=== PATIENT | female | born 1990 | race Caucasian/White ===

== ENCOUNTER 2024-10-02 10:15 | Inpatient (IN) ==
--- NOTE | 2024-10-02 10:22 | History & Physical Report ---
Date of Service October 02, 2024 Assessment & Plan (1) 39 weeks gestation of : (2) Encounter for induction of labor: Plan Edmond bulb inserted Pitocin Arom when indicated Monitor tracing, category 1 Admission and Anticipated Discharge Date Admission Date: October 02, 2024 History of Present Illness Chief Complaint: Induction of labor Primary Care Provider: Emanuel Chiu MD 34 yo at 39w6d confirmed by US, here for induction. She was a previously scheduled due to breech presentation, but is now vertex presentation and would like a vaginal delivery. Complications with this include asthma, tobacco use, 06/2023 ascus/hpv+, colpo RUSSEL 1 rpt rec 06/2024, short cervix at 24 wk, anemia, breech at 36 weeks but vertex now. Has been attending OB appointments regularly. Currently taking no medications. Contractions: none. Fluid or Blood loss: none Movement: active Labs - Blood type: O+ - Antibody screen: negative - H.4 (08/26/24) - Hct 30.2% (08/26/24) - Wbc: 16.99 (08/26/24) - Plt: 347 (08/26/24) - Rubella: immune - VDRL/RPR: non-reactive - Gonorrhea: negative - Chlamydia: negative - HIV: non-reactive - HbSAg: non-reactive - GBS: negative - Glucose 1 Hr 50 gm - 114 (07/17/24) Allergies Allergy/AdvReac Type Severity Reaction Status Date / Time Penicillins Allergy Intermediate Vomiting Verified 10/01/24 14:36 Sulfa (Sulfonamide Allergy Intermediate Vomiting Verified 10/01/24 14:36 Antibiotics) Home Medications Medication Instructions Recorded Confirmed Type albuterol sulfate 90 mcg/actuation 1 - 2 puff inhalation Q4H PRN SOB 05/05/24 10/02/24 History aerosol inhaler prenat.vits,jocelynn,[id number] 1 tab PO HS 06/04/24 10/02/24 History buprenorphine HCl 8 mg sublingual 8 mg sublingual BID 06/12/24 10/02/24 History tablet breast pump #1 ea 09/25/24 10/01/24 Rx breast pump #1 ea 09/25/24 10/01/24 Rx cyanocobalamin (vitamin B-12) 1,000 mcg PO QAM 09/25/24 10/02/24 History 1,000 mcg tablet (Vitamin B-12) fluticasone propionate 115 2 puff inhalation HS 09/25/24 10/02/24 History mcg-salmeterol 21 mcg/actuation HFA inhaler (Advair HFA) Patient History Medical History Asthma Depression History of anemia Hx iron transfusions TMJ click No device, states she has never been diagnosed with TMJ Surgical History History of cone biopsy of cervix Hx of tonsillectomy [place] teeth removed Family History Father Cirrhosis of liver Mother Hypertension Other No family history of adverse response to anesthesia Social History Smoking Status: Current every day smoker Tobacco Type: Cigarettes Cigarettes Per Day: 3-4; Second Hand Exposure: Yes; Do You Dip or Chew Tobacco: No; Tobacco Cessation Education Requested by Patient: No Hx Alcohol Use: No Hx Substance Use: No Preferred Language: Hungarian Communication Ability: Effective Irrigation District Manager Required: No Beliefs That Will Affect Care: None marital status: Single marital status details: Marvin (35) [phone] Current Living Situation: Family and Significant Other Current Living Situation Comment: Pt lives with ROSELINEBMarvin and 6yo felipesuleman Jessica current occupational status: unemployed Other Information That Helps Us Care for You: No Feels Safe at Home: Yes Safety Concerns: Feels Safe At This Time Assistive Devices: Denture - Upper OB History : 3 Full term: 1 Premature: 0 Total Number of Induced Abortions: 1 Total Number of Spontaneous Abortions: 0 Ectopics: 0 Multiple births: 0 Number of Living Children: 1 [employer] COUN[employer]OR History Last menstrual period: Yes Menstrual reliability: definite Flow: normal Menstrual regularity: regular Monthly: Yes Age at menarche: 15 On control pills at conception: No Menstrual history comments: 28-30 day cycles Other symptoms: 22+wks transfer Details: last pap 06/19/23 ASCUS/HPV+, recommend colpo ppx Review of Systems All systems reviewed & are unremarkable except as noted in HPI & below Physical Exam Constitutional: WD/WN, vitals as above Respiratory: normal respiratory effort Auscultation: + wheezes (mild wheezing in bilateral lower lung bases) Cardiovascular: Rate/Rhythm: regular rate and regular rhythm Heart Sounds: normal S1 and normal S2 no LE edema bilaterally, negative Lokesh sign bilaterally Gastrointestinal (Abdomen): normal bowel sounds, soft, nontender, no hepatosplenomegaly +gravid Skin: no rashes, warm and dry Genitourinary: Manual OB Exam: + cervical dilation 1 cm, + cervical effacement 70% and + station -[address] rFost Results & Data Vital Signs (Past 12 Hours) SpO2 96% on RA Laboratory Results OB Labs: Hgb 9.4 g/dl (12.0-16.0) L 08/26/24 Hct 30.2 % (37.0-47.0) L 08/26/24 MCV 69.7 fL (80.0-100.0) L 08/26/24 Plt Count 347 K/uL (130-400) 08/26/24 Treponema pallidum Ab Negative (Negative) 07/17/24 Glucose 1 Hr 50 gm 114 mg/dl (70-130) 07/17/24 OB Optional Labs: No Data to Display Labs Reviewed: Initial OB Labs Blood Type & RH O positive Antibody Screen Negative HCT/HGB38.3/12.3 Platelets 299 Hep C IgG 13yrs+ Oldnon reactive Pap Test ASCUS/HPV+ 06/19/23 Chlamydia negative Gonorrhea negative Rubella immune RPR non reactive HBsAg non reactive HIV non reactive MCV 73.5 Urine Cx 25,000 cfu/ml yeast declined genetic screen Monitoring External Monitor HR: 140 variability: moderate accelerations: present decelerations: absent Category 1 tracing Supervising Physician Co-Signing Physician Notes Resident Physician Supervision Note: I was present with Dr. Aguayo during the history and exam. I discussed the case with the resident and agree with the findings and plan as documented in the note. Any exceptions or clarifications are listed here: admitted for induction, spontaneously now cephalic, confirmed with u/s this am. will place edmond and start pitocin, arom when able. fhts categ 1. Documented By: Chloé Frost MD, FACOG Resident Activity Tracking Resident Involvement: Resident Care Provided Care Provided: OB Delivery
[2024-10-02] MEDS ORDERED: CALCIUM CARBONATE 500 MG CHEWABLE TAB PO PRN (10:34)
[2024-10-02] MEDS ORDERED: ACETAMINOPHEN 325 MG TAB PO PRN (10:34)
[2024-10-02] MEDS ORDERED: OXYTOCIN 30 UNITS/NSS 30 UNITS/500 ML BAG IV PRN (10:34)
[2024-10-02] MEDS ORDERED: LIDOCAINE 1% LOCAL 20 ML VIAL INFIL PRN (10:34)
[2024-10-02] MEDS: LACTATED RINGER'S 1,000 ML IV PRN (10:47)
[2024-10-02] MEDS: OXYTOCIN 30 UNITS/NSS 30 UNITS/500 ML BAG IV PRN (11:00)
--- NOTE | 2024-10-02 11:02 | Labor Progress Brief Note ---
Date of Service October 02, 2024 Subjective 39 week induction, unfavorable cx at term. planned edmond ripening balloon Assessment & Plan (1) 39 weeks gestation of : (2) Encounter for induction of labor: (3) Non-dilated cervix in term : Plan edmond balloon for cx ripening placed. pt costa well. Admission and Anticipated Discharge Date Admission Date: October 02, 2024 Physical Exam Genitourinary: Manual OB Exam: + cervical dilation (1+), + cervical effacement 70% and + station -2 (post, medium) OB Exam Monitor Tracing: + external FHT monitor used, + external uterine monitor used, + category I and + normal FHT variability PROCEDURE: sse cx visualized, grasped on ant lip with ring forcep, edmond through os and balloon inflated with 40cc sterile water. Spec removed, edmond taped to leg. pt cosat well. Coding Level of Care Code None Diagnoses 39 weeks gestation of Z3A.39 Encounter for induction of labor Z34.90 Non-dilated cervix in term O34.40 CPT Codes Misx Procedure Codes - 84922 Placement of cervical dilator: 33638 Placement of cervical dilator ([id number]) [facility] Miscellaneous Codes Misx Procedure Codes 95622 Placement of cervical dilator
[2024-10-02 11:14] LABS: Hematocrit (blood only) 36.7 % (37.0-47.0); Hemoglobin 11.8 g/dl (12.0-16.0); Mean Corpuscular Hemoglobin 24.8 pg (25.0-34.0); Mean Corpuscular Volume 77.1 fL (80.0-100.0); Platelet Count 247 K/uL (130-400); Red Blood Count 4.76 M/uL (4.20-5.40); White Blood Count 13.65 K/ul (4.8-10.8)
--- NOTE | 2024-10-02 13:06 | Labor Progress Brief Note ---
Date of Service October 02, 2024 Subjective does not report painful ctx. edmond bulb did not come out. Assessment & Plan (1) 39 weeks gestation of : (2) Encounter for induction of labor: Plan cont with pitocin. fhts categ 1. arom when able. pt may have epidural when desires. Admission and Anticipated Discharge Date Admission Date: October 02, 2024 Physical Exam Genitourinary: Manual OB Exam: + cervical dilation (sve edmond bulb through cx. ) OB Exam Monitor Tracing: + external FHT monitor used, + external uterine monitor used (q2-3, pit at 5), + category I and + normal FHT variability Results & Data Vital Signs (Past 12 Hours) Vital Signs Temp Pulse Resp BP Pulse Ox O2 Del Method 10/02/24 12:52 76 106/55 L 10/02/24 12:33 81 100 10/02/24 12:28 86 100 10/02/24 12:23 83 100 10/02/24 12:18 89 100 10/02/24 12:13 83 99 10/02/24 12:08 86 99 10/02/24 12:03 82 97 10/02/24 11:58 89 99 10/02/24 11:53 85 97 10/02/24 11:50 81 111/56 L 10/02/24 11:48 84 99 10/02/24 11:43 90 98 10/02/24 11:38 89 98 10/02/24 11:33 80 98 10/02/24 11:28 83 97 10/02/24 11:23 86 98 10/02/24 11:21 84 94 10/02/24 11:18 81 98 10/02/24 11:13 84 96 10/02/24 11:08 86 96 10/02/24 11:06 97.9 F 18 Room Air 10/02/24 11:03 83 113/56 L 10/02/24 11:02 84 10/02/24 11:02 111/52 L 10/02/24 11:02 97.9 F 84 18 111/52 L Coding Level of Care Code None Diagnoses 39 weeks gestation of Z3A.39 Encounter for induction of labor Z34.90
[2024-10-02] MEDS: fentANYL 2 MCG/ML BUPIVacaine 0.125%-NSS 100ML BAG ONE (15:27)
[2024-10-02] MEDS ORDERED: ONDANSETRON INJ 2 MG/ML 2 ML VIAL IV PRN (15:30)
[2024-10-02] MEDS ORDERED: NALOXONE HCL 1 MG in SODIUM CHLORIDE 0.9% 1,000 ML IV PRN (15:30)
[2024-10-02] MEDS: SODIUM CHLORIDE 0.9% PF INJ 10 ML VIAL ONE (15:30)
[2024-10-02] MEDS ORDERED: PROMETHAZINE 6.25 MG/50.25 ML BAG IV PRN (15:30)
[2024-10-02] MEDS ORDERED: ROPIVACAINE 0.5% PF 5 MG/ML 20 ML VIAL EPI PRN (15:30)
[2024-10-02] MEDS ORDERED: diphenhydrAMINE 50 MG/ML VIAL IV PRN (15:30)
[2024-10-02] MEDS ORDERED: LIDOCAINE 2% MPF LOCAL 5 ML VIAL EPI PRN (15:30)
[2024-10-02] MEDS: BUPIVACAINE 0.25% PF 30 ML VIAL ONE (15:30)
[2024-10-02] MEDS ORDERED: NALBUPHINE HCL INJ 10 MG/ML AMP IV PRN (15:30)
[2024-10-02] MEDS ORDERED: NALOXONE HCL 0.4 MG/1 ML VIAL/CARP IV PRN (15:30)
[2024-10-02] MEDS: LIDOCAINE 2%/EPINEPHRINE 1:200,000 20 ML PF ONE (15:30)
[2024-10-02] MEDS ORDERED: SODIUM CHLORIDE 0.9% PF INJ 10 ML VIAL EPI PRN (15:30)
[2024-10-02] MEDS ORDERED: BUPIVACAINE 0.25% PF 30 ML VIAL EPI PRN (15:30)
--- NOTE | 2024-10-02 15:30 | Anesthesiology Consultation ---
Date of Service October 02, 2024 Assessment & Plan Chart Review Chart Review: Patient NOT seen in Pre Admission Testing and Acceptable Risk for Labor Epidural Consults Requested none ASA ASA2 Proposed Anesthesia Anesthesia Type: Labor Epidural Risk / Benefits Reviewed With: PT / POA / Parent / Guardian, Accepts Plan and Informed Consent Obtained History Height/Weight Height: 5 ft 4 in Weight: 81.193 kg Allergies Allergy/AdvReac Type Severity Reaction Status Date / Time Penicillins Allergy Intermediate Vomiting Verified 10/01/24 14:36 Sulfa (Sulfonamide Allergy Intermediate Vomiting Verified 10/01/24 14:36 Antibiotics) Medications Home Medications Medication Instructions Recorded Confirmed Last Taken albuterol sulfate 90 mcg/actuation 1 - 2 puff inhalation Q4H PRN SOB 05/05/24 10/02/24 10/02/24 09:30 aerosol inhaler prenat.vits,jocelynn,[id number] 1 tab PO HS 06/04/24 10/02/24 10/01/24 09:00 buprenorphine HCl 8 mg sublingual 8 mg sublingual BID 06/12/24 10/02/24 10/02/24 08:30 tablet breast pump #1 ea 09/25/24 10/01/24 Unknown breast pump #1 ea 09/25/24 10/01/24 Unknown cyanocobalamin (vitamin B-12) 1,000 mcg PO QAM 09/25/24 10/02/24 10/01/24 09:00 1,000 mcg tablet (Vitamin B-12) fluticasone propionate 115 2 puff inhalation HS 09/25/24 10/02/24 10/01/24 21:00 mcg-salmeterol 21 mcg/actuation HFA inhaler (Advair HFA) Active Medications Generic Name Dose Route Start Last Admin Trade Name Freq PRN Reason Stop Dose Admin Oxytocin 30 units in 500 mls @ 9 mls/hr 10/02/24 10:34 10/02/24 14:05 Pitocin 30 Units/Nss IV 10/04/24 10:33 0.54 units/hr .Q24H PRN 9 mls/hr Labor Induction/Augmentation Titration Protocol 0.54 UNITS/HR Lactated Ringer's 1,000 mls @ 125 mls/hr 10/02/24 10:34 10/02/24 15:15 Lr IV 10/04/24 10:33 125 mls/hr .Q8H PRN Administration L&D Protocol Protocol Past Medical History Medical History Asthma Depression History of anemia Hx iron transfusions TMJ click No device, states she has never been diagnosed with TMJ Exercise / Class Metabolic Activity II 4-5 Yardwork/Stairs/Walk up hill Past Family History Family History Father Cirrhosis of liver Mother Hypertension Other No family history of adverse response to anesthesia Past Surgical History Surgical History History of cone biopsy of cervix Hx of tonsillectomy [place] teeth removed Past Anesthesia History No Hx of Anesthesia Complications and No Family Hx of Anesthesia Complications History of PONV No Hx of PONV and No Hx of Motion Sickness Social History Smoking Status: Current every day smoker Smoking cigarettes per day: 3-4 Do You Dip or Chew Tobacco: No Hx Alcohol Use: No Hx Substance Use: No substance use type: does not use Last Used Substance Other:: 6yrs ago Physical Exam Vital Signs Last Vital Signs Temp 36.6 C 10/02/24 15:01 Pulse 83 10/02/24 15:28 Resp 16 10/02/24 15:01 BP 115/62 10/02/24 15:28 Pulse Ox 99 10/02/24 15:27 O2 Del Method Room Air 10/02/24 11:06 ENMT Mouth: no dentition abnormality Thyromental Distance: > or= 3.5 Finger Breadths Mallampati Class: II Neck normal visual inspection Respiratory normal respiratory effort Auscultation: lungs clear to auscultation bilaterally Cardiovascular Rate/Rhythm: regular rate and regular rhythm Psychiatric Orientation: alert Testing Laboratory Results 10/02/24 10:50 Blood Type O Positive 10/02/24 10:50 Antibody Screen NEGATIVE 10/02/24 10:50
--- NOTE | 2024-10-02 15:51 | Labor Progress Brief Note ---
Date of Service October 02, 2024 Subjective comfortable with epidural Assessment & Plan (1) 39 weeks gestation of : (2) Encounter for induction of labor: Plan will see how arom helps labor pattern. fhts categ 1. c/w pitocin. Admission and Anticipated Discharge Date Admission Date: October 02, 2024 Physical Exam Constitutional: WD/WN, vitals as above Genitourinary: Manual OB Exam: + cervical dilation 4 cm, + cervical effacement (75%), + station -2 and + amniotic fluid (arom) clear OB Exam Monitor Tracing: + external FHT monitor used, + external uterine monitor used (q2-3), + category I and + normal FHT variability Results & Data Vital Signs (Past 12 Hours) Vital Signs Temp Pulse Resp BP Pulse Ox O2 Del Method 10/02/24 15:48 76 128/72 10/02/24 15:47 81 98 10/02/24 15:45 93 H 125/54 L 10/02/24 15:42 89 97 10/02/24 15:41 77 120/55 L 10/02/24 15:37 85 99 10/02/24 15:36 81 116/59 L 10/02/24 15:34 84 124/57 L 10/02/24 15:33 88 119/60 10/02/24 15:32 81 99 10/02/24 15:30 81 110/61 10/02/24 15:28 83 115/62 10/02/24 15:27 83 99 10/02/24 15:26 73 116/64 10/02/24 15:24 82 115/56 L 10/02/24 15:22 100 10/02/24 15:22 80 10/02/24 15:22 81 127/79 10/02/24 15:20 88 121/80 10/02/24 15:18 90 126/79 10/02/24 15:17 89 100 10/02/24 15:12 91 H 100 10/02/24 15:07 85 99 10/02/24 15:02 85 100 10/02/24 15:01 16 10/02/24 15:01 97.9 F 16 10/02/24 14:57 78 127/65 100 10/02/24 13:51 81 124/68 10/02/24 12:52 76 106/55 L 10/02/24 12:33 81 100 10/02/24 12:28 86 100 10/02/24 12:23 83 100 10/02/24 12:18 89 100 10/02/24 12:13 83 99 10/02/24 12:08 86 99 10/02/24 12:03 82 97 10/02/24 11:58 89 99 10/02/24 11:53 85 97 10/02/24 11:50 81 111/56 L 10/02/24 11:48 84 99 10/02/24 11:43 90 98 10/02/24 11:38 89 98 10/02/24 11:33 80 98 10/02/24 11:28 83 97 10/02/24 11:23 86 98 10/02/24 11:21 84 94 10/02/24 11:18 81 98 10/02/24 11:13 84 96 10/02/24 11:08 86 96 10/02/24 11:06 97.9 F 18 Room Air 10/02/24 11:03 83 113/56 L 10/02/24 11:02 84 10/02/24 11:02 111/52 L 10/02/24 11:02 97.9 F 84 18 111/52 L Coding Level of Care Code None Diagnoses 39 weeks gestation of Z3A.39 Encounter for induction of labor Z34.90
[2024-10-02] MEDS: SODIUM CHLORIDE 0.9% PF INJ 10 ML VIAL EPI STA (16:38)
[2024-10-02] MEDS: BUPIVACAINE 0.25% PF 30 ML VIAL EPI STA (16:38)
[2024-10-02] MEDS: LIDOCAINE 2%/EPINEPHRINE 1:200,000 20 ML PF EPI STA (16:38)
--- NOTE | 2024-10-02 19:17 | Labor Progress Brief Note ---
Date of Service October 02, 2024 Subjective comfortable. Assessment & Plan (1) 39 weeks gestation of : (2) Encounter for induction of labor: Plan good cx change. c/w pit. fhts categ 1. reviewed tracing with patient and family. Admission and Anticipated Discharge Date Admission Date: October 02, 2024 Physical Exam Constitutional: WD/WN, vitals as above Genitourinary: Manual OB Exam: + cervical dilation 5 cm (per nurse) OB Exam Monitor Tracing: + external FHT monitor used (baseline 105), + external uterine monitor used, + category I and + normal FHT variability Results & Data Vital Signs (Past 12 Hours) Vital Signs Temp Pulse Resp BP Pulse Ox O2 Del Method 10/02/24 19:12 81 100 10/02/24 19:07 79 98/53 L 100 10/02/24 19:02 80 100 10/02/24 18:57 71 100 10/02/24 18:52 68 111/59 L 100 10/02/24 18:47 74 100 10/02/24 18:42 90 100 10/02/24 18:37 85 112/68 100 10/02/24 18:32 72 100 10/02/24 18:30 16 10/02/24 18:30 16 10/02/24 18:27 73 100 10/02/24 18:22 87 100 10/02/24 18:21 89 125/58 L 10/02/24 18:17 75 100 10/02/24 18:12 80 100 10/02/24 18:07 91 H 100 10/02/24 18:06 85 115/57 L 10/02/24 18:02 78 100 10/02/24 17:57 77 99 10/02/24 17:52 100 10/02/24 17:52 82 10/02/24 17:52 82 121/59 L 10/02/24 17:47 74 100 10/02/24 17:42 92 H 100 10/02/24 17:37 96 H 100 10/02/24 17:32 71 100 10/02/24 17:27 71 99 10/02/24 17:26 18 10/02/24 17:26 98.2 F 18 10/02/24 17:22 74 100 10/02/24 17:21 78 131/64 10/02/24 17:17 87 98 10/02/24 17:12 85 97 10/02/24 17:07 86 93/52 L 96 10/02/24 17:02 86 97 10/02/24 17:00 18 10/02/24 17:00 18 10/02/24 16:57 89 98 10/02/24 16:52 85 98 10/02/24 16:51 80 108/54 L 10/02/24 16:47 89 98 10/02/24 16:42 74 98 10/02/24 16:37 84 99 10/02/24 16:32 81 98 10/02/24 16:30 16 10/02/24 16:30 16 10/02/24 16:27 92 H 98 10/02/24 16:22 83 99 10/02/24 16:21 86 119/56 L 10/02/24 16:17 78 98 10/02/24 16:12 87 100 10/02/24 16:07 90 98 10/02/24 16:02 109 H 100 10/02/24 16:00 18 10/02/24 16:00 18 10/02/24 15:57 89 98 10/02/24 15:52 82 99 10/02/24 15:48 76 128/72 10/02/24 15:47 81 98 10/02/24 15:45 93 H 125/54 L 10/02/24 15:42 89 97 10/02/24 15:41 77 120/55 L 10/02/24 15:37 85 99 10/02/24 15:36 81 116/59 L 10/02/24 15:34 84 124/57 L 10/02/24 15:33 88 119/60 10/02/24 15:32 81 99 10/02/24 15:30 81 110/61 10/02/24 15:28 83 115/62 10/02/24 15:27 83 99 10/02/24 15:26 73 116/64 10/02/24 15:24 82 115/56 L 10/02/24 15:22 100 10/02/24 15:22 80 10/02/24 15:22 81 127/79 10/02/24 15:20 88 121/80 10/02/24 15:18 90 126/79 10/02/24 15:17 89 100 10/02/24 15:12 91 H 100 10/02/24 15:07 85 99 10/02/24 15:02 85 100 10/02/24 15:01 16 10/02/24 15:01 97.9 F 16 10/02/24 14:57 78 127/65 100 10/02/24 13:51 81 124/68 10/02/24 12:52 76 106/55 L 10/02/24 12:33 81 100 10/02/24 12:28 86 100 10/02/24 12:23 83 100 10/02/24 12:18 89 100 10/02/24 12:13 83 99 10/02/24 12:08 86 99 10/02/24 12:03 82 97 10/02/24 11:58 89 99 10/02/24 11:53 85 97 10/02/24 11:50 81 111/56 L 10/02/24 11:48 84 99 10/02/24 11:43 90 98 10/02/24 11:38 89 98 10/02/24 11:33 80 98 10/02/24 11:28 83 97 10/02/24 11:23 86 98 10/02/24 11:21 84 94 10/02/24 11:18 81 98 10/02/24 11:13 84 96 10/02/24 11:08 86 96 10/02/24 11:06 97.9 F 18 Room Air 10/02/24 11:03 83 113/56 L 10/02/24 11:02 84 10/02/24 11:02 111/52 L 10/02/24 11:02 97.9 F 84 18 111/52 L Coding Level of Care Code None Diagnoses 39 weeks gestation of Z3A.39 Encounter for induction of labor Z34.90
[2024-10-02] MEDS: fentANYL 2 MCG/ML BUPIVacaine 0.125%-NSS 100ML BAG EPI PRN (23:06)
--- NOTE | 2024-10-03 01:50 | Delivery Summary ---
Vaginal Delivery Summary Date of Service October 03, 2024 Vaginal Delivery Summary The patient dilated to complete and pushed to deliver a viable female Apgars 8 and 9 via over intact perineum. Mouth and nose bulb suctioned at perineum. Shoulders and body delivered with ease. was vigorous and crying at . Cord clamped at 30 seconds of life and infant to maternal abdomen where the cord was then doubly clamped and cut. Placenta delivered spontaneously and intact, three-vessel cord. Hemostasis achieved with dilute pitocin and uterine massage. Cervix and sulci intact. QBL 197 cc. Mother and baby stable in recovery. [facility] Vaginal Delivery Charge Delivery Type Details:
[2024-10-03] MEDS ORDERED: BENZOCAINE 20% SPRY 85 APPLN/85 GM CAN EXT PRN (04:01)
[2024-10-03] MEDS ORDERED: OXYTOCIN 30 UNITS/NSS 30 UNITS/500 ML BAG IV PRN (04:01)
[2024-10-03] MEDS ORDERED: IBUPROFEN 600 MG TAB PO PRN (04:01)
[2024-10-03] MEDS ORDERED: ALBUTEROL HFA 8 GM INHALER INH PRN (04:01)
[2024-10-03] MEDS ORDERED: HYDROCORTISONE ACETATE 25 MG SUPP PR PRN (04:01)
[2024-10-03] MEDS: PRENATAL VITAMIN 1 TAB PO SCH (08:57)
[2024-10-03] MEDS: DOCUSATE SODIUM 100 MG CAP PO SCH (08:57)
[2024-10-03] MEDS: ACETAMINOPHEN 325 MG TAB PO PRN (11:46)
[2024-10-03] MEDS: DIPHTHER/TETAN/PERTUS Vaccine (Tdap, Adol/Adult) 0.5mL IM ONE (17:24)
[2024-10-03] MEDS: FLUTICASONE/VILANTEROL 100/25MCG 14 PUFFS/INHALER INH SCH (20:37)
[2024-10-04 08:06] VITALS: BP 110/69; PULSE 72; RESP 16; TEMP 98.2; O2SAT 97
--- NOTE | 2024-10-04 08:50 | Obstetrical Progress Note ---
Date of Service October 04, 2024 Assessment & Plan (1) Supervision of normal intrauterine in multigravida: PPD#1 doing well. Desires DC home today so she can go home to get things for the baby - baby is staying inpatient, pt will then go on "nesting" status. Followup 6w PP in office. Subjective Ambulation: ambulating normally Voiding: no voiding problems Diet Tolerance:: regular diet Lochia:: Moderate Review of Systems All systems reviewed & are unremarkable except as noted in HPI & below Physical Exam Constitutional WD/WN, vitals as above no acute distress Respiratory normal respiratory effort Cardiovascular Rate/Rhythm: regular rate and regular rhythm Gastrointestinal (Abdomen) Inspection/Auscultation: abdomen normal to inspection; abdomen not distended Percussion/Palpation: abdomen soft Genitourinary OB Exam Abdomen: + fundal height Fundus: + firm; not tender Results & Data Vital Signs (Past 12 Hours) Vital Signs Temp Pulse Resp BP Pulse Ox O2 Del Method 10/04/24 08:05 36.8 C 72 16 110/69 97 Room Air 10/03/24 23:45 36.9 C 68 18 105/65 98 Room Air
== END 2024-10-04 12:20 | disposition home or self-care (01) | DRG 807 ==
LOC: 4S1 10:15 → 4E2 10-03 04:10